=== PATIENT | female | born 1995 | race Hispanic/Latino ===

== ENCOUNTER 2019-01-12 18:02 | Emergency (ER) | payer SELFPAY ==
[~2019-01-12] VITALS: Ht 157.5 cm; Wt 104.3 kg
--- NOTE | 2019-01-12 18:26 | NUR ---
PATIENT SEEN BY KHURRAM WALKER AND DR. ROSA IN TRIAGE.
== END 2019-01-12 18:30 | disposition short-term general hospital (02) ==
LOC: ER 18:02
DX: R50.9 Fever, unspecified (principal)

== ENCOUNTER 2021-02-22 16:26 | Inpatient (IN) | payer BC, OTHER ==
[~2021-02-22] VITALS: Ht 157.5 cm; Wt 104.3 kg
[2021-02-22] MEDS ORDERED: IBUPROFEN 600 MG TAB PO NR (16:45)
[2021-02-22] MEDS: ONDANSETRON HCL INJ 2MG/ML 2ML 2 MG/ML VIAL IV PRN ×3 (17:06→23:03)
[2021-02-22] MEDS: Morphine 4mg Syringe 4 MG/ML INJ IV PRN ×3 (17:10→23:03)
[2021-02-22 17:14] LABS: BASOPHILS # (AUTO) 0.1 (0.0-0.1); BASOPHILS % 0.4 % (0.0-1.0); EOSINOPHILS # (AUTO) 0.1 (0.0-0.4); EOSINOPHILS % 0.5 % (0.0-6.0); HEMATOCRIT 38.3 % (34.2-44.1); HEMOGLOBIN 11.6 g/dL (12.0-16.0); LYMPHOCYTES # (AUTO) 1.7 (1.0-3.2); LYMPHOCYTES % 10.2 % (18.0-39.1); MEAN CORPUSCULAR HEMOGLOBIN 23.4 pg (28-32); MEAN CORPUSCULAR HGB CONC 30.3 g/dL (31-35); MEAN CORPUSCULAR VOLUME 77.4 fL (81-99); MONOCYTES # (AUTO) 0.7 (0.2-0.8); MONOCYTES % 4.3 % (4.4-11.3); NEUTROPHILS # (AUTO) 14.2 (2.1-6.9); NEUTROPHILS % 84.1 % (38.7-80.0); PLATELET COUNT 522 x10e3/uL (140-360); RED BLOOD COUNT 4.95 x10e6/uL (3.6-5.1); RED CELL DISTRIBUTION WIDTH 17.1 % (11.7-14.4)
[2021-02-22 17:35] LABS: ALBUMIN 4.1 g/dL (3.5-5.0); ANION GAP 15.8 mmol/L (8-16); CALCIUM 9.7 mg/dL (8.4-10.2); CREATININE, SERUM 0.8 mg/dL (0.57-1.11); POTASSIUM 3.8 mmol/L (3.5-5.1)
[2021-02-22] MEDS ORDERED: Morphine 4mg Syringe 4 MG/ML INJ IV NR (19:30)
[2021-02-22] MEDS ORDERED: SODIUM CHLORIDE FLUSH 10 ML SYR INJ PRN (19:30)
[2021-02-22] MEDS ORDERED: ONDANSETRON HCL INJ 2MG/ML 2ML 2 MG/ML VIAL IV PRN (19:30)
[2021-02-22] MEDS ORDERED: IOPAMIDOL 370 MG/ML 200 ML INFUS..BTL INJ ONE (19:44)
[2021-02-22] MEDS ORDERED: SODIUM CHLORIDE 0.9% 50ML 50 ML ONE (19:44)
[2021-02-22] MEDS ORDERED: DIPHENHYDRAMINE HCL INJ 50 MG/ML VIAL IV ONE (20:30)
[2021-02-22] MEDS ORDERED: METHYLPREDNISOLONE SOD SUCC 125 MG/2ML VIAL IV ONE (20:45)
[2021-02-22] MEDS ORDERED: FAMOTIDINE 20 MG/2 ML VIAL IV ONE (20:45)
[2021-02-22] MEDS ORDERED: Vancomycin IV 1 GM in SODIUM CHLORIDE 0.9% 250ML 250 ML IV SCH ×4 (21:00)
[2021-02-22] MEDS ORDERED: ACETAMINOPHEN 325 MG TAB PO PRN (22:45)
[2021-02-23] VITALS (9 sets, daily range): BP systolic 116–139; BP diastolic 66–84
[2021-02-23] MEDS: HYDROCODONE/APAP 5MG-325MG TAB PO PRN ×3 (00:08→11:15)
[2021-02-23] MEDS ORDERED: ACETAMINOPHEN 325 MG TAB PO PRN (00:15)
[2021-02-23] MEDS: ONDANSETRON HCL INJ 2MG/ML 2ML 2 MG/ML VIAL IV PRN ×4 (03:39→20:48)
[2021-02-23] MEDS: Morphine 4mg Syringe 4 MG/ML INJ IV PRN ×5 (03:39→20:38)
[2021-02-23 05:41] LABS: BASOPHILS % 0.2 % (0.0-1.0); HEMATOCRIT 38.4 % (34.2-44.1); HEMOGLOBIN 11.6 g/dL (12.0-16.0); LYMPHOCYTES # (AUTO) 1.2 (1.0-3.2); LYMPHOCYTES % 8.8 % (18.0-39.1); MEAN CORPUSCULAR HEMOGLOBIN 23.3 pg (28-32); MEAN CORPUSCULAR HGB CONC 30.2 g/dL (31-35); MEAN CORPUSCULAR VOLUME 77.3 fL (81-99); MONOCYTES # (AUTO) 0.1 (0.2-0.8); MONOCYTES % 0.7 % (4.4-11.3); NEUTROPHILS # (AUTO) 12.3 (2.1-6.9); NEUTROPHILS % 89.7 % (38.7-80.0); PLATELET COUNT 490 x10e3/uL (140-360); RED BLOOD COUNT 4.97 x10e6/uL (3.6-5.1); RED CELL DISTRIBUTION WIDTH 17.1 % (11.7-14.4)
[2021-02-23] MEDS ORDERED: METFORMIN HCL500 MG PO (05:47)
[2021-02-23 06:23] LABS: ANION GAP 11.1 mmol/L (8-16); CALCIUM 9.3 mg/dL (8.4-10.2); CREATININE, SERUM 0.74 mg/dL (0.57-1.11); POTASSIUM 4.1 mmol/L (3.5-5.1)
[2021-02-23] MEDS ORDERED: SODIUM CHLORIDE 0.9% 250ML 250 ML ONE (06:43)
[2021-02-23] MEDS: Clindamycin INJ 600 MG 600 MG in SODIUM CHLORIDE 0.9% 50ML 50 ML IV SCH ×3 (06:44→22:09)
[2021-02-23 07:18] LABS: FERRITIN 48.98 ng/mL (4.63-204.00); THYROID STIMULATING HORMONE 0.371 uIU/mL (0.350-4.940)
[2021-02-23] MEDS: FERROUS SULFATE 325 MG TAB PO SCH (09:33)
[2021-02-23 15:50] LABS: CLARITY,URINE CLEAR (CLEAR); COLOR,URINE YELLOW (YELLOW); KETONES,URINE TRACE (NEGATIVE); LEUKOCYTE ESTERASE ,URINE NEGATIVE (NEGATIVE); NITRITE,URINE NEGATIVE (NEGATIVE); PROTEIN,URINE DIPSTICK NEGATIVE (NEGATIVE); URINE UROBILINOGEN 0.2 mg/dL (0.2 - 1)
[2021-02-23 16:01] LABS: EPITHELIAL CELLS,URINE FEW /LPF; RBC,URINE 0-5 /HPF (0-5)
[2021-02-23] MEDS ORDERED: SODIUM CHLORIDE 0.9% 1000ML 1,000 ML IV SCH (16:30)
[2021-02-23] MEDS: HYDROCODONE/APAP 7.5MG-325MG 1 EA TAB PO PRN (18:16)
[2021-02-23] MEDS ORDERED: Clindamycin INJ 150 MG/ML 600 MG Vial ONE (22:10)
[2021-02-23] MEDS ORDERED: SODIUM CHLORIDE 0.9% 50ML 50 ML ONE (22:18)
[2021-02-24] VITALS: BP 129/86
[2021-02-24] MEDS: HYDROCODONE/APAP 7.5MG-325MG 1 EA TAB PO PRN (00:21)
[2021-02-24 04:00] VITALS: BP 124/79
[2021-02-24] MEDS: Morphine 4mg Syringe 4 MG/ML INJ IV PRN (05:30)
[2021-02-24] MEDS ORDERED: CLINDAMYCIN 600MG / 50ML 50 ML IV ONE (05:37)
[2021-02-24] MEDS: Clindamycin INJ 600 MG 600 MG in SODIUM CHLORIDE 0.9% 50ML 50 ML IV SCH (05:42)
[2021-02-24] MEDS: ONDANSETRON HCL INJ 2MG/ML 2ML 2 MG/ML VIAL IV PRN (05:43)
[2021-02-24 06:05] LABS: BASOPHILS # (AUTO) 0.1 (0.0-0.1); BASOPHILS % 0.4 % (0.0-1.0); EOSINOPHILS # (AUTO) 0.1 (0.0-0.4); EOSINOPHILS % 0.6 % (0.0-6.0); HEMATOCRIT 35.5 % (34.2-44.1); HEMOGLOBIN 10.2 g/dL (12.0-16.0); LYMPHOCYTES # (AUTO) 4.1 (1.0-3.2); LYMPHOCYTES % 29.2 % (18.0-39.1); MEAN CORPUSCULAR HEMOGLOBIN 23.2 pg (28-32); MEAN CORPUSCULAR HGB CONC 28.7 g/dL (31-35); MEAN CORPUSCULAR VOLUME 80.7 fL (81-99); MONOCYTES # (AUTO) 0.8 (0.2-0.8); MONOCYTES % 5.4 % (4.4-11.3); NEUTROPHILS # (AUTO) 8.9 (2.1-6.9); PLATELET COUNT 459 x10e3/uL (140-360); RED CELL DISTRIBUTION WIDTH 17.5 % (11.7-14.4)
[2021-02-24] MEDS ORDERED: METFORMIN HCL 500 MG TAB PO SCH (08:00)
[2021-02-24 08:08] VITALS: BP 124/79
[2021-02-24 08:20] VITALS: BP 119/73
[2021-02-24] MEDS ORDERED: IRON325 M1 PO (08:40)
[2021-02-24] MEDS ORDERED: HYDROCODON-ACE1 EA12 PO (08:40)
[2021-02-24] MEDS ORDERED: BACTRIM DS TAB1 EACH PO (08:40)
[2021-02-24] MEDS ORDERED: TRIMETHOPRIM/SULFAMETHOXAZOLE 160-800 MG TAB PO SCH (09:00)
[2021-02-24] MEDS: FERROUS SULFATE 325 MG TAB PO SCH (09:01)
== END 2021-02-24 09:38 | disposition home or self-care (01) | DRG 603 ==
LOC: ER 17:28 → ERHOLD 19:34 → MED/SURG3 23:20
PROVIDERS: ADMIT Internal Medicine; ATTEND Internal Medicine
DX: L02.412 Cutaneous abscess of left axilla (principal); Z68.41 Body mass index [BMI] 40.0-44.9, adult; D50.9 Iron deficiency anemia, unspecified; T36.8X5A Adverse effect of other systemic antibiotics, initial encounter; Y92.230 Patient room in hospital as the place of occurrence of the external cause; H54.61 Unqualified visual loss, right eye, normal vision left eye; E28.2 Polycystic ovarian syndrome; E66.01 Morbid (severe) obesity due to excess calories; E86.0 Dehydration; Z83.3 Family history of diabetes mellitus; Z82.49 Family history of ischemic heart disease and other diseases of the circulatory system; Z88.1 Allergy status to other antibiotic agents; Z20.822 Contact with and (suspected) exposure to COVID-19
CPT/HCPCS: 36415; 73201; 80048; 80053; 81001; 82607; 82728; 82746; 83540; 83605; 84443; 84466; 84702; 85025; 85045; 87040; 94760; 94799; 99251; 99284; J1200; J2270; J2405; J2930; J3370; J7030; J7050; Q9967; U0002

== ENCOUNTER 2021-07-04 18:13 | Inpatient (IN) | payer SELFPAY ==
[~2021-07-04] VITALS: Ht 157.5 cm; Wt 122.0 kg
[~2021-07-04 18:13] MED LIST: BACTRIM DS TAB1 EACH PO; HYDROCODON-ACE1 EA12 PO; IRON325 M1 PO; METFORMIN HCL500 MG PO
[2021-07-04] MEDS ORDERED: SODIUM CHLORIDE 0.9% 1000ML 1,000 ML IV STA ×3 (18:54→23:49)
[2021-07-04] MEDS ORDERED: CLINDAMYCIN 600MG / 50ML 50 ML IV STA (18:54)
[2021-07-04] MEDS ORDERED: IBUPROFEN 600 MG TAB PO STA (18:54)
[2021-07-04] MEDS ORDERED: FENTANYL CITRATE/PF 100MCG/2 ML INJ IV ONE (19:00)
[2021-07-04] MEDS ORDERED: ONDANSETRON HCL INJ 2MG/ML 2ML 2 MG/ML VIAL IV STA ×2 (19:07→23:31)
[2021-07-04 19:09] LABS: BASOPHILS # (AUTO) 0.1 (0.0-0.1); BASOPHILS % 0.3 % (0.0-1.0); EOSINOPHILS # (AUTO) 0.2 (0.0-0.4); EOSINOPHILS % 1.2 % (0.0-6.0); HEMATOCRIT 40.4 % (34.2-44.1); HEMOGLOBIN 12.3 g/dL (12.0-16.0); LYMPHOCYTES # (AUTO) 2.1 (1.0-3.2); LYMPHOCYTES % 11.7 % (18.0-39.1); MEAN CORPUSCULAR HEMOGLOBIN 24.3 pg (28-32); MEAN CORPUSCULAR HGB CONC 30.4 g/dL (31-35); MEAN CORPUSCULAR VOLUME 79.7 fL (81-99); MONOCYTES # (AUTO) 0.8 (0.2-0.8); MONOCYTES % 4.6 % (4.4-11.3); NEUTROPHILS # (AUTO) 14.8 (2.1-6.9); NEUTROPHILS % 81.7 % (38.7-80.0); PLATELET COUNT 496 x10e3/uL (140-360); RED BLOOD COUNT 5.07 x10e6/uL (3.6-5.1); RED CELL DISTRIBUTION WIDTH 15.3 % (11.7-14.4)
[2021-07-04] MEDS ORDERED: SODIUM CHLORIDE 0.9% 1000ML 1,000 ML ONE (19:10)
[2021-07-04] MEDS ORDERED: IBUPROFEN 600 MG TAB ONE (19:10)
[2021-07-04] MEDS ORDERED: Morphine 4mg INJECTION 4 MG/ML INJ ONE (19:15)
[2021-07-04] MEDS ORDERED: Morphine 4mg INJECTION 4 MG/ML INJ IV ONE (19:15)
[2021-07-04 19:19] LABS: INR 0.88; PARTIAL THROMBOPLASTIN TIME 26.9 seconds (23.8-35.5); PROTHROMBIN TIME 12.8 seconds (11.9-14.5)
[2021-07-04 19:28] LABS: ALBUMIN/GLOBULIN RATIO 0.9 (0.8-2.0); ANION GAP 14.9 mmol/L (8-16); CALCIUM 9.6 mg/dL (8.4-10.2); CREATININE, SERUM 0.83 mg/dL (0.57-1.11); POTASSIUM 3.9 mmol/L (3.5-5.1)
[2021-07-04] MEDS: ONDANSETRON HCL INJ 2MG/ML 2ML 2 MG/ML VIAL IV STA ×2 (20:55→23:36)
[2021-07-04] MEDS ORDERED: IOPAMIDOL 370 MG/ML 100 ML INFUS..BTL INJ ONE (20:58)
[2021-07-04 22:01] LABS: CLARITY,URINE CLEAR (CLEAR); COLOR,URINE YELLOW (YELLOW); KETONES,URINE NEGATIVE (NEGATIVE); LEUKOCYTE ESTERASE ,URINE NEGATIVE (NEGATIVE); NITRITE,URINE NEGATIVE (NEGATIVE); PROTEIN,URINE DIPSTICK NEGATIVE (NEGATIVE); URINE UROBILINOGEN 0.2 mg/dL (0.2 - 1)
[2021-07-04 22:06] LABS: BACTERIA,URINE RARE /HPF; EPITHELIAL CELLS,URINE FEW /LPF
[2021-07-04] MEDS ORDERED: ACETAMINOPHEN 325 MG TAB PO ONE (23:30)
[2021-07-04] MEDS ORDERED: ONDANSETRON HCL INJ 2MG/ML 2ML 2 MG/ML VIAL IV PRN (23:30)
[2021-07-04] MEDS ORDERED: ACETAMINOPHEN 1000 MG/100 ML IV STA (23:31)
[2021-07-04] MEDS ORDERED: ACETAMINOPHEN 325 MG TAB ONE (23:34)
[2021-07-04] MEDS ORDERED: ACETAMINOPHEN 1000 MG/100 ML 100 ML IV ONE (23:47)
[2021-07-04] MEDS: SODIUM CHLORIDE 0.9% 1000ML 1,000 ML IV SCH (23:50)
[2021-07-05] MEDS ORDERED: IBUPROFEN 800MG/ 200ML 800 MG in SODIUM CHLORIDE 0.9% 250ML 250 ML IV STA (01:17)
[2021-07-05] MEDS ORDERED: IBUPROFEN 800 MG/200 ML BAG IV ONE (01:30)
[2021-07-05] MEDS: Morphine 2mg Syringe 2 MG/ML SYR IV PRN ×3 (01:34→16:00)
[2021-07-05] MEDS ORDERED: MELATONIN 5 MG TABLET PO PRN (01:45)
[2021-07-05] MEDS ORDERED: POTASSIUM CHLORIDE 20 MEQ TAB CR PO PRN (01:45)
[2021-07-05] MEDS ORDERED: HYDROCODONE/APAP 5MG-325MG TAB PO PRN (01:45)
[2021-07-05] MEDS ORDERED: DOCUSATE SODIUM 100 MG CAP PO PRN (01:45)
[2021-07-05] MEDS ORDERED: LIDOCAINE 4% PATCH TP PRN (01:45)
[2021-07-05] MEDS ORDERED: ONDANSETRON HCL INJ 2MG/ML 2ML 2 MG/ML VIAL IV PRN (01:45)
[2021-07-05] MEDS ORDERED: HYDRALAZINE HCL 20 MG/ML VIAL IV PRN (01:45)
[2021-07-05] MEDS ORDERED: BENZONATATE 100 MG CAP PO PRN (01:45)
[2021-07-05] MEDS ORDERED: ALBUTEROL/IPRATROPIUM 3 ML NEB NEB PRN (01:45)
[2021-07-05] MEDS ORDERED: DIPHENHYDRAMINE HCL 25 MG CAP PO PRN (01:45)
[2021-07-05] MEDS ORDERED: DEXTROSE 50% SYRINGE 50 ML IV PRN (01:45)
[2021-07-05 05:30] LABS: BASOPHILS % 0.3 % (0.0-1.0); EOSINOPHILS % 0.2 % (0.0-6.0); HEMATOCRIT 36.4 % (34.2-44.1); HEMOGLOBIN 10.8 g/dL (12.0-16.0); LYMPHOCYTES # (AUTO) 1.7 (1.0-3.2); LYMPHOCYTES % 10.8 % (18.0-39.1); MEAN CORPUSCULAR HEMOGLOBIN 24.2 pg (28-32); MEAN CORPUSCULAR HGB CONC 29.7 g/dL (31-35); MEAN CORPUSCULAR VOLUME 81.6 fL (81-99); MONOCYTES # (AUTO) 0.5 (0.2-0.8); MONOCYTES % 3.4 % (4.4-11.3); NEUTROPHILS # (AUTO) 13.2 (2.1-6.9); NEUTROPHILS % 84.8 % (38.7-80.0); PLATELET COUNT 414 x10e3/uL (140-360); RED BLOOD COUNT 4.46 x10e6/uL (3.6-5.1); RED CELL DISTRIBUTION WIDTH 15.5 % (11.7-14.4)
[2021-07-05 05:50] LABS: ANION GAP 10.9 mmol/L (8-16); CALCIUM 8.2 mg/dL (8.4-10.2); CREATININE, SERUM 0.77 mg/dL (0.57-1.11); POTASSIUM 3.9 mmol/L (3.5-5.1)
[2021-07-05] MEDS: ONDANSETRON HCL INJ 2MG/ML 2ML 2 MG/ML VIAL IV PRN ×2 (06:25→13:53)
[2021-07-05] MEDS: ACETAMINOPHEN 325 MG TAB PO PRN ×2 (06:29→13:54)
[2021-07-05] MEDS: IBUPROFEN 600 MG TAB PO PRN ×2 (07:29→19:56)
[2021-07-05] MEDS: PANTOPRAZOLE SOD 40 MG TABEC PO SCH (07:29)
[2021-07-05] MEDS: SODIUM CHLORIDE 0.9% 1000ML 1,000 ML IV SCH (12:03)
[2021-07-05] MEDS ORDERED: Vancomycin IV 1.25 GM in SODIUM CHLORIDE 0.9% 250ML 250 ML IV SCH (14:15)
[2021-07-05] MEDS ORDERED: OMEPRAZOLE40 MG PO (14:37)
[2021-07-05 14:38] LABS: HIV 1&2 AB SCREEN NON-REACTIVE (NONREACTIVE)
[2021-07-05 14:47] VITALS: BP 141/87
[2021-07-05 15:03] VITALS: BP 141/87
[2021-07-05] MEDS ORDERED: SODIUM CHLORIDE 0.9% IV SCH ×2 (15:30→17:30)
[2021-07-05] MEDS ORDERED: DAPTOMYCIN IV SCH ×2 (15:30→17:30)
[2021-07-05] MEDS: ENOXAPARIN SOD INJ 40 MG/0.4 ML SYR SC SCH (16:00)
[2021-07-05] MEDS: Clindamycin INJ 600 MG 600 MG in DEXTROSE 5% 50ML 50 ML IV SCH (16:30)
[2021-07-05 17:18] VITALS: BP 139/94
[2021-07-05] MEDS ORDERED: DOCUSATE SODIUM 100 MG CAP PO ONE (19:30)
[2021-07-05] MEDS ORDERED: CITRATE OF MAGNESIA 300ML BOTTLE PO ONE (19:30)
[2021-07-05 20:00] VITALS: BP 150/92
[2021-07-05 21:00] VITALS: BP 139/94
[2021-07-06] VITALS (8 sets, daily range): BP systolic 124–147; BP diastolic 79–93
[2021-07-06] MEDS: Clindamycin INJ 600 MG 600 MG in DEXTROSE 5% 50ML 50 ML IV SCH ×2 (00:23→08:30)
[2021-07-06] MEDS: SODIUM CHLORIDE 0.9% 1000ML 1,000 ML IV SCH ×2 (03:16→13:30)
[2021-07-06 06:07] LABS: BASOPHILS % 0.4 % (0.0-1.0); EOSINOPHILS # (AUTO) 0.2 (0.0-0.4); EOSINOPHILS % 2.3 % (0.0-6.0); HEMATOCRIT 35.8 % (34.2-44.1); HEMOGLOBIN 10.4 g/dL (12.0-16.0); LYMPHOCYTES # (AUTO) 2.3 (1.0-3.2); MEAN CORPUSCULAR HGB CONC 29.1 g/dL (31-35); MEAN CORPUSCULAR VOLUME 82.5 fL (81-99); MONOCYTES # (AUTO) 0.8 (0.2-0.8); MONOCYTES % 8.8 % (4.4-11.3); NEUTROPHILS # (AUTO) 5.2 (2.1-6.9); NEUTROPHILS % 61.1 % (38.7-80.0); PLATELET COUNT 402 x10e3/uL (140-360); RED BLOOD COUNT 4.34 x10e6/uL (3.6-5.1); RED CELL DISTRIBUTION WIDTH 15.7 % (11.7-14.4)
[2021-07-06 06:36] LABS: ANION GAP 10.6 mmol/L (8-16); CHOL/HDL RATIO 5.5 (3.0-3.6); CREATININE, SERUM 0.74 mg/dL (0.57-1.11); POTASSIUM 3.6 mmol/L (3.5-5.1)
[2021-07-06] MEDS: PANTOPRAZOLE SOD 40 MG TABEC PO SCH (07:30)
[2021-07-06] MEDS: Morphine 2mg Syringe 2 MG/ML SYR IV PRN ×4 (08:17→22:08)
[2021-07-06] MEDS: Doxycycline IV 100 MG in SODIUM CHLORIDE 0.9% 100 ML IV SCH (14:00)
[2021-07-06] MEDS: ENOXAPARIN SOD INJ 40 MG/0.4 ML SYR SC SCH (16:41)
[2021-07-06] MEDS: ONDANSETRON HCL INJ 2MG/ML 2ML 2 MG/ML VIAL IV PRN (18:32)
[2021-07-06] MEDS: ACETAMINOPHEN 325 MG TAB PO PRN (23:00)
[2021-07-07] VITALS: BP 125/83
[2021-07-07] MEDS: ONDANSETRON HCL INJ 2MG/ML 2ML 2 MG/ML VIAL IV PRN (00:30)
[2021-07-07] MEDS: Doxycycline IV 100 MG in SODIUM CHLORIDE 0.9% 100 ML IV SCH (02:40)
[2021-07-07 04:00] VITALS: BP 129/85
[2021-07-07] MEDS: SODIUM CHLORIDE 0.9% 1000ML 1,000 ML IV SCH (05:29)
[2021-07-07] MEDS: PANTOPRAZOLE SOD 40 MG TABEC PO SCH (07:30)
[2021-07-07 08:03] VITALS: BP 129/85
[2021-07-07 08:32] VITALS: BP 122/71
[2021-07-07 11:59] VITALS: BP 143/87
[2021-07-07] MEDS ORDERED: DOXYCYCLINE HY100 MG PO (15:25)
[2021-07-07] MEDS ORDERED: ONDANSETRON HCL 4 MG ORAL DISINTEGRATING TAB PO PRN (16:30)
[2021-07-08] MEDS ORDERED: DOXYCYCLINE HYCLATE TABLET 100 MG TAB PO SCH (02:00)
== END 2021-07-07 16:40 | disposition home or self-care (01) | DRG 872 ==
LOC: ER 18:29 → ERHOLD 23:24 → MED/SURG2 07-05 14:23
PROVIDERS: ADMIT Internal Medicine; ATTEND Internal Medicine
DX: A41.9 Sepsis, unspecified organism (principal); L03.112 Cellulitis of left axilla; Z68.42 Body mass index [BMI] 45.0-49.9, adult; L73.2 Hidradenitis suppurativa; E66.01 Morbid (severe) obesity due to excess calories; Z20.822 Contact with and (suspected) exposure to COVID-19
CPT/HCPCS: 36415; 71045; 73201; 80048; 80053; 80061; 81001; 83036; 83605; 84702; 85025; 85610; 85730; 87040; 87086; 87390; 93005; 99251; 99284; G0433; G0435; J0692; J1650; J2270; J2405; J2543; J3010; J7030; J7050; Q9967

== ENCOUNTER 2021-11-16 05:04 | Emergency (ER) | payer BC ==
[~2021-11-16] VITALS: Ht 157.5 cm; Wt 122.0 kg
[~2021-11-16 05:04] MED LIST changes: +DOXYCYCLINE HY100 MG PO; +OMEPRAZOLE40 MG PO
[2021-11-16] MEDS ORDERED: IBUPROFEN 600 MG TAB PO ONE (05:16)
[2021-11-16 05:58] LABS: INFLUENZAE A&B ANTIGEN (RAPID) NEGATIVE (NEGATIVE); STREPTOCOCCUS GRP A ANTIGEN NEGATIVE (NEGATIVE)
[2021-11-16] MEDS ORDERED: IBUPROFEN800 MG PO (06:04)
[2021-11-16] MEDS ORDERED: BENZONATATE100 MG PO (06:04)
== END 2021-11-16 06:13 | disposition home or self-care (01) ==
LOC: ER 05:13
DX: R50.9 Fever, unspecified (principal); J06.9 Acute upper respiratory infection, unspecified; R05.9 Cough, unspecified; E28.2 Polycystic ovarian syndrome; Z20.822 Contact with and (suspected) exposure to COVID-19
CPT/HCPCS: 0223U; 36415; 83518; 87070; 87400; 93005; 99283

== ENCOUNTER 2024-08-06 06:46 | Emergency (ER) | payer SELFPAY ==
[~2024-08-06] VITALS: Ht 157.5 cm; Wt 113.4 kg
[~2024-08-06 06:46] MED LIST changes: +BACTRIM 400-801 EACH PO; +BENZONATATE100 MG PO; +IBUPROFEN800 MG PO; +MOTRIN800 MG PO
[2024-08-06 06:57] VITALS: PULSE 94; RESP 16; TEMP 98.3; O2SAT 98
[2024-08-06] MEDS ORDERED: CLEOCIN40 GM TOP (07:22)
[2024-08-06] MEDS ORDERED: CLINDAMYCIN HC150 MG PO (07:22)
== END 2024-08-06 07:39 | disposition home or self-care (01) ==
LOC: ER 06:55
DX: L02.214 Cutaneous abscess of groin (principal); L73.2 Hidradenitis suppurativa; E28.2 Polycystic ovarian syndrome; F17.210 Nicotine dependence, cigarettes, uncomplicated
CPT/HCPCS: 99283